=== PATIENT | female | born 1955 | race Caucasian/White ===

== ENCOUNTER 2018-08-31 20:21 | Emergency (ER) | payer OTHER ==
[~2018-08-31] VITALS: Ht 157.5 cm; Wt 69.8 kg
[2018-08-31 20:24] VITALS: Ht 157.5 cm; Wt 69.8 kg
[2018-08-31] MEDS ORDERED: BEN25 PO (21:49)
--- NOTE | 2018-08-31 22:39 | ERD ---
ER Documentation Chief Complaint Chief Complaint rash on BLE x 3 days HPI 63-year-old female presents with 3-day history of some skin lesions on the lower extremities. She denies any recent illness, fevers, lesions are not painful and she describes no itching. Patient denies any significant past medical history. She takes benazepril sertraline, pravastatin. None of these medications are new. She denies shortness of breath, chest pain, vomiting, abdominal pain, additional symptoms. ROS All systems reviewed and are negative except as per history of present illness. Medications Home Meds Active Scripts Diphenhydramine Hcl* (Benadryl*) 25 Mg Cap, 25 MG PO Q6, #15 CAP Prov:KASHIF RUBIO MD 08/31/18 Allergies Allergies: Coded Allergies: No Known Allergy (Unverified , 08/31/18) PMhx/Soc Medical and Surgical Hx: pt denies Surgical Hx Hx Cardiac Disorders: Yes (HTN, HLD) Hx Alcohol Use: No Hx Substance Use: No Hx Tobacco Use: No Smoking Status: Never smoker FmHx Family History: No diabetes, No coronary disease, No other Physical Exam Vitals Vital Signs Date Temp Pulse Resp B/P (MAP) Pulse Ox O2 O2 Flow FiO2 Time Delivery Rate 08/31/18 98.1 95 16 197/95 96 20:24 (129) Physical Exam Const: No acute distress Head: Atraumatic Eyes: Normal Conjunctiva ENT: Normal External Ears, Nose and Mouth. Neck: Full range of motion. No meningismus. Resp: Clear to auscultation bilaterally Cardio: Regular rate and rhythm, no murmurs Abd: Soft, non tender, non distended. Normal bowel sounds Skin: No petechiae or rashes. Nonblanching petechia primarily in the bilateral calves and shins. Slightly raised. Back: No midline or flank tenderness Ext: No cyanosis, or edema Neur: Awake and alert Psych: Normal Mood and Affect Result Diagram: 08/31/180 Results 24 hrs Laboratory Tests Test 08/31/18 22:25 White Blood Count 7.8 10^3/ul Red Blood Count 4.52 10^6/ul Hemoglobin 13.5 g/dl Hematocrit 38.7 % Mean Corpuscular Volume 85.6 fl Mean Corpuscular Hemoglobin 29.9 pg Mean Corpuscular Hemoglobin Concent 34.9 g/dl Red Cell Distribution Width 12.6 % Platelet Count 360 10^3/UL Mean Platelet Volume 8.5 fl Immature Granulocytes % 0.300 % Neutrophils % 49.1 % Lymphocytes % 39.3 % Monocytes % 9.8 % Eosinophils % 1.0 % Basophils % 0.5 % Nucleated Red Blood Cells % 0.0 /100WBC Immature Granulocytes # 0.020 10^3/ul Neutrophils # 3.8 10^3/ul Lymphocytes # 3.1 10^3/ul Monocytes # 0.8 10^3/ul Eosinophils # 0.1 10^3/ul Basophils # 0.0 10^3/ul Nucleated Red Blood Cells # 0.0 10^3/ul Procedures/MDM Patient presents with signs and symptoms most likely that of Henoch-Schnlein purpura. Concern certainly is for blood dyscrasias and thrombocytopenia. Patient is otherwise well-appearing. CBC and basic metabolic panel pending. Further evaluation and review of final labs will be signed out to level provider and supervising ER physician. Departure Diagnosis: Primary Impression: Henoch-Schonlein purpura Additional Impression: Dermatitis Condition: Stable Patient Instructions: Henoch-Schonlein Purpura Additional Instructions: Probablamente ES UN REACCION DE un virus que dura UN SEMANA cheque otro vez en el proximo tanika para mas simptomas- vomito, dolor, lacho, problemas con respirando, o con bautista doctor primario. KASHIF RUBIO MD Aug 31, 2018 22:39
[2018-09-01 00:03] VITALS: BP 164/88; PULSE 64; RESP 16
== END 2018-09-01 00:04 | disposition home or self-care (01) ==
LOC: FTE 20:21
DX: D69.0 Allergic purpura (principal); I10 Essential (primary) hypertension; L30.9 Dermatitis, unspecified
CPT/HCPCS: 80048; 81003; 85025; Z7502; 99283